=== PATIENT | male | born 1940 | race Caucasian/White ===

== ENCOUNTER 2022-06-25 08:53 | Outpatient (RCR) | payer MEDICARE, BC, SELFPAY ==
--- NOTE | 2022-06-25 12:18 | OT.POTN ---
OT/PT Pre-Op Therapy Note OT/PT Pre-Op Therapy Note Start: 06/25/22 08:32 Freq: Status: Active Protocol: Document 06/25/22 11:58 LCN (Rec: 06/25/22 12:18 RADHA [email or web address]) E-signed By Ashleigh Boss, OTR/L, CLT Pre-Op Therapy Note Pre-Op Therapy Note Joint T total shoulder replacement per R shoulder OA. 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 Pt still doing home repair and remodeling/painting and staining projects but is moving very slowly, affects his low back and hand OA. Daughter has 3 jobs but lives real close to his [address] [place] that he built. Overall Bilateral Upper Extremity ROM/ Pt's R shoulder limited to 65 Strength degrees SH flexion. L shoulder also very limited, philip to IR ( impacting one handed toileting hygiene) Social History Type of Dwelling Multilevel Home Number of Stairs to Enter (Stairs) 3 Physical Barriers to Enter Home Railing Ascend Left Lives With: Spouse Living With Comments is legally blind and affected by dementia, pt is primary caregiver. 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 (Pt also showers daily per extra urine flow from artificial bladder.) Use asbestos removal supervisor or 's assist to pull up L side of pants into place. Pre-Op Therapy Note (Continued) Do You Drive Yes Recovery With Outpatient Outpatient PT Scheduled Yes Date/Time & Location of Outpatient PT PT at [facility] is scheduled for Evaluation 06/30/22 (too early? May cancel ) and 07/09/22. Ortho follow up at is 07/04/22. 's INR is 07/08/22. (Pt is considering having home health PT, if social work can help arrange. Other agencies are not responding to his phone call requests. Is open to having transportation but prefers to drive as soon as he can. ) Daughter/cousin to pre-open any needed canned foods. Preop Exercises Given Yes Fall Prevention Education Given Yes Adaptive Equipment Resources Given Yes Post-Op Therapy Progression Reviewed Yes Readiness for Learning Excellent Teaching Comments Pt took extra time to formulate his questions and appears overwhelmed with managing details. He has arranged that his cousin is staying with during the procedure and his daughter took Thursday off to help get him home. Pt has weeks worth of pre portioned frozen food available.
--- NOTE | 2022-06-25 12:20 | OT.POTN ---
OT/PT Pre-Op Therapy Note OT/PT Pre-Op Therapy Note Start: 06/25/22 08:32 Freq: Status: Active Protocol: Document 06/25/22 11:58 LCN (Rec: 06/25/22 12:18 RADHA [id number]) E-signed By Ashleigh Boss, OTR/L, CLT Pre-Op Therapy Note Pre-Op Therapy Note Joint T total shoulder replacement per R shoulder OA. 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 Pt still doing home repair and remodeling/painting and staining projects but is moving very slowly, affects his low back and hand OA. Daughter has 3 jobs but lives real close to his [address] home that he built. Overall Bilateral Upper Extremity ROM/ Pt's R shoulder limited to 65 Strength degrees SH flexion. L shoulder also very limited, philip to IR ( impacting one handed toileting hygiene) Social History Type of Dwelling Multilevel Home Number of Stairs to Enter (Stairs) 3 Physical Barriers to Enter Home Railing Ascend Left Lives With: Spouse Living With Comments is legally blind and affected by dementia, pt is primary caregiver. 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 (Pt also showers daily per extra urine flow from artificial bladder.) Use supervisory investigative specialist or 's assist to pull up L side of pants into place. Pre-Op Therapy Note (Continued) Do You Drive Yes Recovery With Outpatient Outpatient PT Scheduled Yes Date/Time & Location of Outpatient PT PT at [facility] is scheduled for Evaluation 06/30/22 (too early? May cancel ) and 07/09/22. Ortho follow up at is 07/04/22. 's INR is 07/08/22. (Pt is considering having home health PT, if social work can help arrange. Other agencies are not responding to his phone call requests. Is open to having transportation but prefers to drive as soon as he can. ) Daughter/cousin to pre-open any needed canned foods. Preop Exercises Given Yes Fall Prevention Education Given Yes Adaptive Equipment Resources Given Yes Post-Op Therapy Progression Reviewed Yes Readiness for Learning Excellent Teaching Comments Pt took extra time to formulate his questions and appears overwhelmed with managing details. He has arranged that his cousin is staying with during the procedure and his daughter took Thursday off to help get him home. Pt has weeks worth of pre portioned frozen food available.
== END 2023-05-27 11:12 | disposition home or self-care (01) ==
PROVIDERS: Visit Provider Orthopaedic Surgery
DX: M19.011 Primary osteoarthritis, right shoulder (principal); Z51.89 Encounter for other specified aftercare

== ENCOUNTER 2022-06-27 16:08 | Inpatient (IN) | payer MEDICARE, BC, SELFPAY ==
[2022-06-26] VITALS (22 sets, daily range): BP systolic 107–145; BP diastolic 58–76; PULSE 48–76; RESP 14–20; TEMP 36–36.9; O2SAT 92–99; BMI 39.8
[2022-06-26] MEDS: CELECOXIB 200 MG CAPSULE PO (07:09)
[2022-06-26] MEDS: fentaNYL 100 MCG/2 ML inj IVP (07:09)
[2022-06-26] MEDS: MIDAZOLAM HCL 1 MG/ML inj IVP (07:09)
[2022-06-26] MEDS: ACETAMINOPHEN 500 MG TABLET 1000 MG PO ×3 (07:09→22:50)
[2022-06-26] MEDS: OXYCODONE (CR) 10 MG TAB.ER.12H PO (07:09)
[2022-06-26] MEDS: LACTATED RINGERS 1000 ML 1,000 ML 100 ML IV (07:30)
--- NOTE | 2022-06-26 08:36 | SUR.PREOP ---
shoulder wash done with alcohol and hydrogen peroxide
--- NOTE | 2022-06-26 08:41 | SUR.PREOP ---
Pt cousin Reshma here with pt to keep an eye on Pts who has dementia watch, phone and wallet given to Reshma
[2022-06-26] MEDS: SODIUM CHLORIDE 0.9 % (FLUSH) 10 ML SYRINGE IVF (08:55)
--- NOTE | 2022-06-26 09:02 | SUR.PREOP ---
TIME?OUT:?0900 right shoulder yolanda sow,pt and chart consent PT/RN/MDA?VERIFICATION?OF?SURGICAL?SITE,?PROCEDURE,?AND?CONSENT OBTAINED?PRIOR?TO?INVASIVE?PROCEDURE.
--- NOTE | 2022-06-26 09:27 | P.NB_ITS ---
Nerve Block Nerve Block Time Seen by Provider: 09:27 Date Seen: 06/26/22 Type of block requested by surgeon for post-operative analgesia: interscalene Side: right Time out performed: Yes Verification of patient name: Yes Verification of date of : Yes Site marking: site marked Name of person performing procedure: MARIAA Carpenter Continuous monitoring Was continuous monitoring of O2 sat, B/P, contract clerk automobile, recorded every 15 minutes?: Yes Procedure Checklist: sterile prep, needles and gloves Ultrasound guided. Images saved: Yes Medications given in 5ml increments after negative aspiration: Ropivicaine %: 0.5 mL: 20 Needle gauge: 20 Decadron (mg): 10 Precedex (mcg): 20 Patient tolerated procedure well: Yes Block Charges Block Charge (with Pro Fee): Brachial Plexus Use of Ultrasound Machine for Block: Yes- US Guidance/pain block
[2022-06-26] MEDS: CEFAZOLIN 2 GM INJ IVP (09:30)
[2022-06-26] MEDS: TRANEXAMIC ACID 100 MG/ML INJ 1000 MG IV (09:35)
--- NOTE | 2022-06-26 12:00 | PM.ORPRC ---
Procedure Note Date of procedure: 06/26/22 Procedure: SURGEON: Raúl Gallegos MD FURNACE LINER: Ann Guerrero PA-C PREOPERATIVE DIAGNOSIS: Right shoulder rotator cuff tear arthropathy POSTOPERATIVE DIAGNOSIS: Right shoulder rotator cuff tear arthropathy NAME OF OPERATION: Right upper extremity reverse shoulder arthroplasty ANESTHESIA: General endotracheal ESTIMATED BLOOD LOSS: 200 mL COMPLICATIONS: None SPECIMENS: None DRAINS: None PREOPERATIVE ANTIBIOTICS: Ancef 3 grams IMPLANTS: 1. Tornier 29mm standard x 35 mm baseplate 2. 39mm standard glenosphere 3. Eight be humeral stem 4. High eccentric +0 humeral tray 5. 39mm +6 polyethylene INDICATIONS: The patient is a 81-year-old male with a longstanding history of severe, unrelenting right shoulder pain secondary to rotator cuff tear arthropathy. Despite appropriate nonoperative management, including activity modification, anti-inflammatories, [id number]-[id number]-[id number] pain medication, physical therapy, and injections they continue to have pain and disability. Operative intervention was offered. The risks, benefits and expected outcomes were discussed in detail. These included but were not limited to: Infection, bleeding, injury to blood vessel or nerve, venous thromboembolism. All questions were answered to their satisfaction. Use of an certified ophthalmic assistant was necessary throughout the case for patient positioning and safety, soft tissue retraction, and closure. PROCEDURE: General anesthesia was administered. The patient was placed in the lazy beach chair position on the operating room table. The right upper extremity was prepped and draped in the usual sterile fashion. A standard deltopectoral incision was made. Subcutaneous dissection was taken with electrocautery to the deltopectoral interval. The cephalic vein was mobilized, lateral branches were cauterized. The vein was taken medially with the pectoralis. We bluntly entered the deltopectoral interval. We freed up the deltoid. The upper 1/3 of the insertion of the pectoralis was divided with cautery. The static retractor was placed. The clavipectoral fascia and CA ligament were divided. The circumflex vessels were controlled with electrocautery. The biceps was dissected out of the bicipital groove, was tagged with a #2 FiberWire suture and divided proximally. Two fiberWire sutures were placed in the subscapularis. The subscap was subperiosteally elevated off of the lesser tuberosity. The humeral head was delivered into the wound. The intramedullary humeral cutting guide was placed. We made the cut at the anatomic neck, in 30? of retroversion. Humeral sounds were used to assess the diameter of the canal. The broach was placed and had good rotational stability. The calcar reamer was used and the protective base plate cover was placed. Attention was then turned to the glenoid. Hohmann retractors were placed posteriorly. The labrum and biceps stump were sharply debrided. The origin of the inferior glenohumeral ligaments were subperiosteally released off of the glenoid. The drill guide was placed. The guide pin was placed in 0? of cephalic tilt. The reamer was used to bleeding bone. The central drill was used x2. The tap was used. The standard base plate was placed. This had excellent purchase. Locking screws were placed. The 39 standard glenosphere was impacted. The set screw was tightened. Attention then returned to the humerus. We placed a high eccentric standard base plate and standard poly. We reduced the shoulder and took it through a range of motion. It was found to be stable with appropriate soft tissue tension. Trial humeral components were removed. The biceps was tenodesed in the bicipital groove with drill holes and our previously placed FiberWire suture. We placed #2 FiberWire sutures in the lesser tuberosity for subsequent subscap repair. We assembled the humeral component on the back table. We placed it in the center of our subscapularis repair sutures and tapped it down to our humeral cut. This had excellent purchase. The shoulder was reduced and again was found to be stable with appropriate soft tissue tension. We did a 3 min dilute Betadine solution soak. We irrigated the wound with 3 L of normal saline via pulse lavage. We repaired the subscapularis to the lesser tuberosity with our previously placed FiberWire sutures. The deltopectoral interval was loosely reapproximated with an 0 Vicryl in an interrupted [id number] fashion. Subcutaneous tissues were closed with the 2-0 Vicryl and a running 3-0 Monocryl suture. The skin was sealed with glue. A dry dressing and sling were applied. Sponge and needle counts were correct x2. The patient tolerated the procedure well, there were no apparent complications. They were awakened and extubated in the operating room, taken to the postanesthesia care unit in satisfactory condition. PLAN: The patient will be mobilized with physical therapy. The sling will be used for 6 weeks postoperatively. Active range of motion in forward flexion and abduction as tolerates. No external rotation greater than 0? for 6 weeks postoperatively. They will be discharged to home once medically appropriate.
--- NOTE | 2022-06-26 12:16 | W.ANESCHARGE ---
Anesthesia Charges Start Date/Time Anesthesia Start Date: 06/26/22 Anesthesia Start Time: 09:15 Stop Date/Time Anesthesia Stop Date: 06/26/22 Anesthesia Stop Time: 12:15 Summary Emergency: No Extremes of Age: Over 71-CPT 42838
--- NOTE | 2022-06-26 13:34 | PC.SOCIAL ---
Met with pt. who was in his room with his cousin, and spouse who has dementia. Pt. has planned that his daughter that lives two miles from their home will stay with his spouse tonight and will stay with pt. and spouse for the entire weekend. Pt. states he has meals in the freezer to heat up when he get's home. Pt.'s cousin also said she can assist with meals and can assist with pt.'s spouse if needed around daughter's help.
[2022-06-26] MEDS: LACTATED RINGERS 1000 ML 1,000 ML 75 ML IV (13:44)
--- NOTE | 2022-06-26 15:44 | PM.IMCN1 ---
Date of Consult Patient: Other ([place], [place]) Consult date: 06/26/22 Requesting Physician: Orthopedics Primary Care Provider: Jeanine Marino CNP Consult Narrative Reason for consult: Post op support of chronic medical conditions Narrative: Jose Messina is a 81 year old man with chronic right shoulder rotator cuff arthropathy who presents for an elective right reverse shoulder arthroplasty. Procedure undertaken uneventfully. No obvious complications. Estimated blood loss of 200 mL. Patient indicates the shoulders still numb. Still not able to use his right upper extremity due to the effects of the block. Denies concerns with breathing , such as shortness of breath. No chest heaviness, pressure, tightness, or pain. Eating and drinking without concerns. Denies nausea or vomiting. Denies dyspepsia, odynophagia, dysphagia. Review of Systems Status of ROS: Reports: 10 or more systems reviewed and unremarkable except as noted in History and below Narrative: No angina or anginal equivalent. No syncope or near syncope. Denies orthostasis or lightheadedness. Denies palpitations. Denies dyspnea at rest, paroxysmal nocturnal dyspnea, or orthopnea. Denies claudication. Denies dependent edema. Utilizes his CPAP machine every night. Did bring his CPAP machine here to the hospital so he can use while here in the hospital. Ordinarily independent in all his ADLs. He is the primary caregiver for his who has a cognitive impairment. Patient is still driving an automobile. He has plans with his daughter to help for the next couple of days in the home, plus his cousin who lives nearby to help if needed as well. His is not able to help much. He expresses concern about his 's well-being while he is not as able to care for her. Has nocturia times 3-4 ordinarily since his radha-bladder in 2013 when he had a robotic assisted radical cystectomy and prostatectomy in conjunction with overall treatment for his bladder cancer. this is not worse or better recently. Denies dysuria, urgency, or hematuria. Denies bowel or bladder concerns. No focal motor neurologic deficits. No recent trauma, injury, infection. Denies fevers, rigors, diaphoresis. Denies myalgias or arthralgias. States he has no focal motor neurologic deficits. Denies weight gain or weight loss. Denies night sweats. Denies polyuria, polydipsia, or polyphagia. No recent rashes, petechiae, or cyanosis. Denies cold or heat intolerance. I reviewed the preoperative assessment per his primary care physician on 06/11/2022. No major contraindications to proceed with the surgery noted at that time. I did note that he has been struggling with borderline low values of serum potassium at lease since a year ago. Most recent serum potassium level 3.5, as low as 2.9 3 months ago. Also noteworthy is that his baseline hemoglobin tends to be mildly low as well with values of 12.5-13 most recently 12.7 on 06/06/2022. [facility] Medical History (Updated 06/26/22 @ 16:05 by Dmitri Matthews MD) Anticoagulated Atrial fibrillation Bladder cancer Bladder cancer Coronary artery disease (CAD) excluded GERD (gastroesophageal reflux disease) Gout Hypertension Rotator cuff tear arthropathy of right shoulder Sleep apnea Surgical History (Updated 06/26/22 @ 16:05 by Dmitri Matthews MD) History of back surgery History of bladder replacement History of carpal tunnel release History of cholecystectomy History of open reduction and internal fixation (ORIF) procedure History of tonsillectomy History of total right hip arthroplasty Family History Other High blood pressure Prostate cancer Social History Narrative: 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 He still drives a car. Highest level of school completed/degree received: some college, no degree Smoking Status: Never smoker Do you use any of these nicotine containing products: None How often do you have a drink containing alcohol: monthly or less Alcohol type: beer and hard liquor How many standard drinks containing alcohol do you have on a typical day: 1 or 2 How often do you have six or more drinks on one occasion: Never AUDIT-C Alcohol total score: 1 Non-prescribed substance use: denies use and over the counter (eg: immodium) Non-prescribed substance use details: OTC: tylenol prn, Tums prn Caffeine: Yes (tea or coffee occ, not every day) service: No Meds Home Medications and Allergies Home Medications Medication Instructions Recorded Confirmed Type acetaminophen 500 mg tablet 1,000 mg PO Q6H PRN 06/25/22 06/26/22 History allopurinol 100 mg tablet 200 mg PO DAILY 06/25/22 06/26/22 History apixaban 5 mg tablet (Eliquis) 5 mg PO BID 06/25/22 06/26/22 History calcium carbonate 500 mg calcium 1,000 mg PO Q6H PRN 06/25/22 06/26/22 History (1,250 mg) chewable tablet (Calcium 500) fluticasone propionate 50 2 spray intranasal DAILY PRN 06/25/22 06/25/22 History mcg/actuation nasal spray,suspension glucosamine-chondroitin 750 mg-600 tab PO 06/25/22 History mg tablet magnesium oxide 250 mg PO DAILY 06/25/22 06/26/22 History metoprolol tartrate 25 mg tablet 25 mg PO BID 06/25/22 06/26/22 History multivitamin 1 tab PO DAILY 06/25/22 06/26/22 History potassium chloride 20 mEq 20 meq PO DAILY 06/25/22 06/26/22 History tablet,extended release(part/cryst) triamterene 75 1 tab PO DAILY 06/25/22 06/26/22 History mg-hydrochlorothiazide 50 mg tablet Allergies Allergy/AdvReac Type Severity Reaction Status Date / Time statins AdvReac Intermediate muscle Uncoded 06/26/22 07:24 stiffness Exam Narrative: Exam Narrative: Patient is in no acute distress. Appears comfortable. He ate the contents of his lunch tray without difficulties. No acute distress. Articulate. Friendly. Cooperative. Alert, oriented to self, place, time, situation. Mood and affect are congruent. Hearing and vision are adequately preserved. Midline nasal septum. Tight oral aperture otherwise benign appearing oropharynx. Voice is somewhat hoarse. Midline trachea. Normal thyroid. No JVD, hepatojugular reflux, or carotid bruits. Does not have adenopathy in the pre or postauricular chains, anterior or posterior cervical chains, submandibular or submental fossa, supra or infraclavicular fossa, or axilla bilaterally. Lungs are clear to auscultation. No wheezing, rhonchi, or rales. Heart tones are chaotic, normal S1-S2, distant tones, no obvious murmur, gallop, or rub. PMI not laterally displaced. Abdomen with active bowel sounds, soft, nontender. Able to move his left upper extremity and right and left lower extremities. Still not able to move right upper extremity status post anesthetic block. Skin is warm and intact. No rash, petechiae, or cyanosis. Independent transfers with standby assist at this juncture. No tremor or asterixis or ataxia. Const: Vital Signs, click to edit/add: Vital Signs - 24 hr 06/26/22 08:35 06/26/22 09:06 06/26/22 12:35 Temperature 97.6 F Pulse Rate 52 L 48 L 52 L Pulse Rate [Left P ulse Oximeter] Respiratory Rate 16 16 16 Blood Pressure 144/66 H 138/63 133/68 Blood Pressure [Le ft Arm] Pulse Oximetry 97 97 99 Oxygen Delivery Me thod Room Air Nasal Cannula Nasal Cannula Oxygen Flow Rate 3 2 06/26/22 12:28 06/26/22 12:13 06/26/22 12:15 Temperature 98.5 F Pulse Rate 54 L 52 L 54 L Pulse Rate [Left P ulse Oximeter] Respiratory Rate 16 16 Blood Pressure 135/70 140/75 H 144/70 H Blood Pressure [Le ft Arm] Pulse Oximetry 99 99 98 Oxygen Delivery Me thod Nasal Cannula Oxygen Flow Rate 2 06/26/22 12:20 06/26/22 12:25 06/26/22 12:30 Temperature Pulse Rate 51 L 57 L 52 L Pulse Rate [Left P ulse Oximeter] Respiratory Rate 16 16 16 Blood Pressure 138/70 135/70 136/66 Blood Pressure [Le ft Arm] Pulse Oximetry 99 99 99 Oxygen Delivery Me thod Nasal Cannula Nasal Cannula Nasal Cannula Oxygen Flow Rate 2 2 2 06/26/22 12:40 06/26/22 12:50 06/26/22 12:50 Temperature 96.8 F L 96.8 F L Pulse Rate 55 L 58 L Pulse Rate [Left P ulse Oximeter] 58 L Respiratory Rate 16 14 14 Blood Pressure 138/65 Blood Pressure [Le ft Arm] 124/76 124/76 Pulse Oximetry 99 94 Oxygen Delivery Me thod Room Air Room Air Room Air Oxygen Flow Rate 2 Documenting provider has reviewed patient's vital signs: yes Assessment and Plan Assessment and plan (1) Rotator cuff tear arthropathy of right shoulder: Status: Acute (2) Status post reverse arthroplasty of right shoulder: Status: Acute (3) Hypertension: Status: Acute (4) Sleep apnea: Problem comment: uses a CPAP Status: Acute (5) Atrial fibrillation: Status: Acute (6) Anticoagulated: Status: Acute (7) History of bladder replacement: Problem comment: ~January 2014 at [facility] Status: Acute Plan 1. Reviewed my impression with the patient, his , and the patient's cousin who lives nearby him in his very supportive. Answered their questions to their satisfaction. 2. Agree with the orthopedic surgery plan relative to perioperative antibiotic prophylaxis. 3. Agree with Orthopedic surgery plan to restart his apixaban anticoagulation therapy once again tomorrow. 4. I will hold his triamterene with hydrochlorothiazide which is use to treat his hypertension. 5. Will continue with other medications. 6. Will check a serum potassium level today. Consider replacement therapy if warranted. 7. Continue with use of his CPAP at hour of sleep. 8. Will follow with Orthopedic surgery while patient is still in the hospital. 9. Patient, , and cousin I agreeable to above stated plans and recommendations.
[2022-06-26] MEDS: CEFAZOLIN 3 GM in 0.9 % SODIUM CHLORIDE 100 ml 100 ML IVPB ×2 (16:23→22:57)
[2022-06-26 16:50] LABS: Potassium* 3.7 mmol/L (3.6-5.1)
--- NOTE | 2022-06-26 20:34 | PC.NURSE ---
Pt. arrived to room 259 at 1250 from PACU after anterior shoulder surgery, R. Dressing c/d/i, cryo cuff in place, SCD/TEDS in use. No pain reported on this shift. Up to use restroom x1, unmeasured void. Pt. is right handed, difficulty feeding self, but able. Frequent vitals completed through 1800. IV antibiotic started late d/t issues w/IV in left hand, re-timed by pharmacy. Pt. comfortably resting in chair. Spouse and cousin at bedside much of the afternoon.
[2022-06-26] MEDS: SENNOSIDES 1 TAB TABLET 2 TAB PO (20:57)
[2022-06-26] MEDS: METOPROLOL TARTRATE 25 MG TABLET PO (20:58)
[2022-06-27 03:00] VITALS: BP 146/70; PULSE 62; RESP 22; TEMP 36.6; O2SAT 98
[2022-06-27] MEDS: ACETAMINOPHEN 500 MG TABLET 1000 MG PO ×4 (05:37→22:54)
--- NOTE | 2022-06-27 06:04 | PC.NURSE ---
SHIFT NOTE : Pt A&O. Afebrile, oxygen saturations >90% on room air, CPAP on overnight. Denies SOB, CP, and N/V. Surgical dressing to right shoulder is CDI, pt beginning to have more sensation in his right hand, arm is still numb, right arm elevated on pillows and active ice on right shoulder continuously. Pt denies needing PRN pain medication, has only received scheduled Tylenol. Pt up SBA with a walker, needing some assistance with ADL's. Pt has a with significant dementia and is worried about managing at home with his shoulder and caring for her, social service consult placed.
[2022-06-27 06:39] LABS: Hematocrit 32.2 % (37.0-53.0); Hemoglobin* 10.3 gm/dL (13.5-17.5); Mean Corpuscular HGB Conc 32 gm/dL (32-36); Mean Corpuscular Hemoglobin 29 pg (26-34); Mean Corpuscular Volume 91 fL (80-100); Platelet Count* 226 K/uL (140-440); Red Blood Count 3.55 m/uL (4.30-5.90); White Blood Count* 14.84 K/uL (4.50-11.00)
[2022-06-27 06:55] LABS: Slide Review Reflex No
[2022-06-27 06:56] LABS: Potassium* 3.5 mmol/L (3.6-5.1); Sodium* 138 mmol/L (135-149)
[2022-06-27 06:59] LABS: Blood Urea Nitrogen* 38 mg/dL (7-30); Creatinine* 1.2 mg/dL (0.5-1.5); Estimated Glomerular Filt Rate 61 ml/min
[2022-06-27] MEDS: CEFAZOLIN 3 GM in 0.9 % SODIUM CHLORIDE 100 ml 100 ML IVPB (07:49)
[2022-06-27 07:54] VITALS: BP 169/74; PULSE 62; RESP 18; TEMP 36.7; O2SAT 98
[2022-06-27] MEDS: METOPROLOL TARTRATE 25 MG TABLET PO ×2 (09:16→21:38)
[2022-06-27] MEDS: allopurinoL 100 MG TABLET 200 MG PO (09:16)
[2022-06-27] MEDS: SENNOSIDES 1 TAB TABLET 2 TAB PO ×2 (09:17→21:38)
[2022-06-27] MEDS: MAGNESIUM OXIDE 400 MG TABLET 200 MG PO (09:17)
[2022-06-27] MEDS: POTASSIUM CHLORIDE 10 MEQ CAPSULE ER 20 MEQ PO (09:17)
--- NOTE | 2022-06-27 09:30 | P.ORPN_ITS ---
Subjective Subjective Time Seen by Provider: 07:50 Date Seen: 06/27/22 Principal diagnosis: S/P day 1 right RSA Interval history: Jose is doing well postoperative day 1 right reverse shoulder arthroplasty. No acute concerns. C/o minimal right shoulder pain that is well managed with icing and Tylenol. Numbness/tingling distally is improving. Denies: chest pain, SOB, fever, chills. Patient has a with advanced dementia that he cares for. Jose is concerned that he will be unable to care for his . manager services consult is pending to address this further. Ortho Exam Narrative Exam Narrative: Incision/Dressing: Dressing appears clean and dry. No drainage present. Mepilex intact. Right shoulder appears moderately swollen but supple with no obvious erythema, fluctuance or excessive warmth. No ecchymosis or erythematous streaking. Warmth around the wound is appropriate. Ice is being utilized as needed. CMS: Intact distally with 2+ Radial pulse. Deltoid sensation intact. Constitutional: Patient is alert and oriented x3. Patient is in no acute distress and converses without labored breathing. Patient is able to make decisions and demonstrates good insight. Patient is pleasant and cooperative. Affect is full range and appropriate for the circumstances. Const Vital Signs, click to edit/add: Vital Signs - 24 hr 06/26/22 12:35 06/26/22 12:28 06/26/22 12:13 Temperature 98.5 F Pulse Rate 52 L 54 L 52 L Pulse Rate [Left Pulse Oximeter] Respiratory Rate 16 16 Blood Pressure 133/68 135/70 140/75 H Blood Pressure [Left Arm] Pulse Oximetry 99 99 99 Oxygen Delivery Method Nasal Cannula Oxygen Flow Rate 2 06/26/22 12:15 06/26/22 12:20 06/26/22 12:25 Temperature Pulse Rate 54 L 51 L 57 L Pulse Rate [Left Pulse Oximeter] Respiratory Rate 16 16 16 Blood Pressure 144/70 H 138/70 135/70 Blood Pressure [Left Arm] Pulse Oximetry 98 99 99 Oxygen Delivery Method Nasal Cannula Nasal Cannula Nasal Cannula Oxygen Flow Rate 2 2 2 06/26/22 12:30 06/26/22 12:40 06/26/22 12:50 Temperature 96.8 F L Pulse Rate 52 L 55 L 58 L Pulse Rate [Left Pulse Oximeter] Respiratory Rate 16 16 14 Blood Pressure 136/66 138/65 Blood Pressure [Left Arm] 124/76 Pulse Oximetry 99 99 Oxygen Delivery Method Nasal Cannula Room Air Room Air Oxygen Flow Rate 2 2 06/26/22 12:50 06/26/22 13:15 06/26/22 14:30 Temperature 96.8 F L Pulse Rate Pulse Rate [Left Pulse Oximeter] 58 L 52 L 61 Respiratory Rate 14 16 Blood Pressure Blood Pressure [Left Arm] 124/76 129/67 113/66 Pulse Oximetry 94 93 Oxygen Delivery Method Room Air Room Air Room Air Oxygen Flow Rate 06/26/22 15:00 06/26/22 18:00 06/26/22 13:06 Temperature 97.8 F Pulse Rate Pulse Rate [Left Pulse Oximeter] 64 63 60 Respiratory Rate 16 14 14 Blood Pressure Blood Pressure [Left Arm] 116/64 114/58 L 127/73 Pulse Oximetry 94 93 92 Oxygen Delivery Method Room Air Room Air Room Air Oxygen Flow Rate 06/26/22 13:30 06/26/22 13:45 06/26/22 14:00 Temperature 97.8 F 98.1 F Pulse Rate Pulse Rate [Left Pulse Oximeter] 57 L 59 L 51 L Respiratory Rate 14 16 Blood Pressure Blood Pressure [Left Arm] 127/71 115/64 120/69 Pulse Oximetry 93 94 92 Oxygen Delivery Method Room Air Room Air Room Air Oxygen Flow Rate 06/26/22 17:00 06/26/22 23:00 06/26/22 23:00 Temperature 98 F Pulse Rate Pulse Rate [Left Pulse Oximeter] 68 70 70 Respiratory Rate 16 20 Blood Pressure Blood Pressure [Left Arm] 125/69 145/73 H Pulse Oximetry 93 95 Oxygen Delivery Method Room Air CPAP Oxygen Flow Rate 06/26/22 19:00 06/27/22 03:00 06/27/22 07:54 Temperature 98.5 F 98 F 98.1 F Pulse Rate Pulse Rate [Left Pulse Oximeter] 76 62 62 Respiratory Rate 18 22 18 Blood Pressure Blood Pressure [Left Arm] 107/61 146/70 H 169/74 H Pulse Oximetry 96 98 98 Oxygen Delivery Method Room Air CPAP CPAP Room Air Oxygen Flow Rate Assessment and Plan Assessment and plan (1) Rotator cuff tear arthropathy of right shoulder: Status: Acute (2) Status post reverse arthroplasty of right shoulder: Status: Acute (3) Hypertension: Status: Acute (4) Sleep apnea: Problem details: uses a CPAP Status: Acute (5) Atrial fibrillation: Status: Acute (6) Anticoagulated: Status: Acute (7) History of bladder replacement: Problem details: ~January 2014 at [facility] Status: Acute Plan Patient will wear the sling for 6 weeks post surgery. He can take it off for comfort and for exercises. Activity: no external rotation of the right shoulder past 0? x 6 weeks. Forward flexion and abduction of the right shoulder is allowed as tolerated. They will work on range of motion of the elbow, wrist, fingers once the block has wore off on the operative extremity. Patient will begin physical therapy for the operative shoulder next week. For discharge, oxycodone and Tylenol for pain. Do not drive while on narcotic pain medication. Drive only when safe to do so, when they have normal use/function of the upper extremity, this will likely take 6 weeks. Patient will minimize and discontinue the narcotic as soon as possible. Remove dressing in 1 week. Dressing is waterproof. May shower. Surgical glue covers the wound. Do not scrub the wound. Expect swelling and bruising about the shoulder and upper extremity. Call Orthopedics if swelling is excessive. Use of ice/active ice is without restriction. Patient will notify Orthopedics with any questions or concerns. Return to Orthopedic clinic next week for a wound check Return to clinic in [address] Gallegos.
--- NOTE | 2022-06-27 09:41 | PM.ORPN ---
Subjective Subjective Time Seen by Provider: 07:50 Date Seen: 06/27/22 Principal diagnosis: S/P day 1 right RSA Interval history: Jose is doing well postoperative day 1 right reverse shoulder arthroplasty. No acute concerns. C/o minimal right shoulder pain that is well managed with icing and Tylenol. Numbness/tingling distally is improving. Denies: chest pain, SOB, fever, chills. Patient has a with advanced dementia that he cares for. Jose is concerned that he will be unable to care for his . client services vice president consult is pending to address this further. Ortho Exam Narrative Exam Narrative: Incision/Dressing: Dressing appears clean and dry. No drainage present. Mepilex intact. Right shoulder appears moderately swollen but supple with no obvious erythema, fluctuance or excessive warmth. Eccymosis present near medial aspect of dressing. Ice is being utilized as needed. CMS: Intact distally with 2+ Radial pulse. Decreased sensation over deltoid. Sensation confirmed distally. Calf: Bilateral calves are supple, with no swelling, pain, tenderness, erythema, discoloration or coolness to the touch. Constitutional: Patient is alert and oriented x3. Patient is in no acute distress and converses without labored breathing. Patient is able to make decisions and demonstrates good insight. Patient is pleasant and cooperative. Affect is full range and appropriate for the circumstances. Other: Patient is wearing her cryo cuff and utilizing her sling during this visit. Const Vital Signs, click to edit/add: Vital Signs - 24 hr 06/26/22 12:35 06/26/22 12:28 06/26/22 12:13 Temperature 98.5 F Pulse Rate 52 L 54 L 52 L Pulse Rate [Left Pulse Oximeter] Respiratory Rate 16 16 Blood Pressure 133/68 135/70 140/75 H Blood Pressure [Left Arm] Pulse Oximetry 99 99 99 Oxygen Delivery Method Nasal Cannula Oxygen Flow Rate 2 06/26/22 12:15 06/26/22 12:20 06/26/22 12:25 Temperature Pulse Rate 54 L 51 L 57 L Pulse Rate [Left Pulse Oximeter] Respiratory Rate 16 16 16 Blood Pressure 144/70 H 138/70 135/70 Blood Pressure [Left Arm] Pulse Oximetry 98 99 99 Oxygen Delivery Method Nasal Cannula Nasal Cannula Nasal Cannula Oxygen Flow Rate 2 2 2 06/26/22 12:30 06/26/22 12:40 06/26/22 12:50 Temperature 96.8 F L Pulse Rate 52 L 55 L 58 L Pulse Rate [Left Pulse Oximeter] Respiratory Rate 16 16 14 Blood Pressure 136/66 138/65 Blood Pressure [Left Arm] 124/76 Pulse Oximetry 99 99 Oxygen Delivery Method Nasal Cannula Room Air Room Air Oxygen Flow Rate 2 2 06/26/22 12:50 06/26/22 13:15 06/26/22 14:30 Temperature 96.8 F L Pulse Rate Pulse Rate [Left Pulse Oximeter] 58 L 52 L 61 Respiratory Rate 14 16 Blood Pressure Blood Pressure [Left Arm] 124/76 129/67 113/66 Pulse Oximetry 94 93 Oxygen Delivery Method Room Air Room Air Room Air Oxygen Flow Rate 06/26/22 15:00 06/26/22 18:00 06/26/22 13:06 Temperature 97.8 F Pulse Rate Pulse Rate [Left Pulse Oximeter] 64 63 60 Respiratory Rate 16 14 14 Blood Pressure Blood Pressure [Left Arm] 116/64 114/58 L 127/73 Pulse Oximetry 94 93 92 Oxygen Delivery Method Room Air Room Air Room Air Oxygen Flow Rate 06/26/22 13:30 06/26/22 13:45 06/26/22 14:00 Temperature 97.8 F 98.1 F Pulse Rate Pulse Rate [Left Pulse Oximeter] 57 L 59 L 51 L Respiratory Rate 14 16 Blood Pressure Blood Pressure [Left Arm] 127/71 115/64 120/69 Pulse Oximetry 93 94 92 Oxygen Delivery Method Room Air Room Air Room Air Oxygen Flow Rate 06/26/22 17:00 06/26/22 23:00 06/26/22 23:00 Temperature 98 F Pulse Rate Pulse Rate [Left Pulse Oximeter] 68 70 70 Respiratory Rate 16 20 Blood Pressure Blood Pressure [Left Arm] 125/69 145/73 H Pulse Oximetry 93 95 Oxygen Delivery Method Room Air CPAP Oxygen Flow Rate 06/26/22 19:00 06/27/22 03:00 06/27/22 07:54 Temperature 98.5 F 98 F 98.1 F Pulse Rate Pulse Rate [Left Pulse Oximeter] 76 62 62 Respiratory Rate 18 22 18 Blood Pressure Blood Pressure [Left Arm] 107/61 146/70 H 169/74 H Pulse Oximetry 96 98 98 Oxygen Delivery Method Room Air CPAP CPAP Room Air Oxygen Flow Rate Assessment and Plan Assessment and plan (1) Rotator cuff tear arthropathy of right shoulder: Status: Acute (2) Status post reverse arthroplasty of right shoulder: Status: Acute (3) Hypertension: Status: Acute (4) Sleep apnea: Problem details: uses a CPAP Status: Acute (5) Atrial fibrillation: Status: Acute (6) Anticoagulated: Status: Acute (7) History of bladder replacement: Problem details: ~January 2014 at [facility] Status: Acute Plan Patient will wear the sling for 6 weeks post surgery. He can take it off for comfort and for exercises. Activity: no external rotation of the right shoulder past 0? x 6 weeks. Forward flexion and abduction of the right shoulder is allowed as tolerated. They will work on range of motion of the elbow, wrist, fingers once the block has wore off on the operative extremity. Patient will begin physical therapy for the operative shoulder next week. For discharge, oxycodone and Tylenol for pain. Do not drive while on narcotic pain medication. Drive only when safe to do so, when they have normal use/function of the upper extremity, this will likely take 6 weeks. Patient will minimize and discontinue the narcotic as soon as possible. Remove dressing in 1 week. Dressing is waterproof. May shower. Surgical glue covers the wound. Do not scrub the wound. Expect swelling and bruising about the shoulder and upper extremity. Call Orthopedics if swelling is excessive. Use of ice/active ice is without restriction. Patient will notify Orthopedics with any questions or concerns. Return to Orthopedic clinic next week for a wound check Return to clinic in [address] Gallegos.
--- NOTE | 2022-06-27 10:04 | PM.DS1 ---
DS: Providers Provider Time Seen by Provider: 09:45 Date Seen: 06/27/22 Primary care physician: Jeanine Marino CNP Consults: 06/26/22 12:55 Consult to Occupational Therapy [CONS] Routine Comment: Reason(s) for OT Consult:: Evaluate and Treat Any Restrictions?:: See Comment Consult to Physical Therapy [CONS] Routine Comment: Reason(s) for PT Consult:: Evaluate and Treat Any Restrictions?:: See Comment Consult to Physician [CONS] Routine Comment: Consulting Provider: Hospitalists Has provider been notified: No Consult to [employer] Line Helper [CONS] Routine Comment: Reason for Consult:: Discharge Planning Needs 06/27/22 05:50 Consult to [employer] Line Helper [CONS] Routine Comment: Pt primary caregiver for , worried managing Reason for Consult:: Social Service Consult Discharge Planning Needs Attending Physician on discharge: Raúl Gallegos MD Date of Discharge: 06/27/22 DS: Diagnosis Discharge Diagnosis (1) Status post reverse arthroplasty of right shoulder: Status: Acute (2) Atrial fibrillation: Status: Chronic Problem details: Chronically on Eliquis for this (3) Hypokalemia: Status: Acute (4) Hypertension: Status: Chronic (5) Sleep apnea: Status: Chronic Problem details: uses a CPAP DS: Summary Hospital Course Hospital Course: This is an 81-year-old male who underwent elective right reverse shoulder arthroplasty for right rotator cuff arthropathy. Surgery and postoperative course were uneventful. He was able to do some exercises with physical therapy today. His daughter and were in the room with him during my interview and exam. His daughter notes that she will be staying with him for a few days and her cousin lives nearby and will be helping out as well. He has had flatus, but no BM yet since surgery. He did have a problem with constipation after a previous surgery. He started taking senna S about 3 days ago in anticipation of this. He denies any new chest pain or shortness of breath. He did feel a little winded after the exercises with physical therapy today, but he says this is nothing new and has been going on for 20 years or more. He and his family had no concerns prior to homegoing. He is on chronic diuretic therapy for hypertension and potassium replacement therapy to go along with this. His potassium was slightly low today for which I gave him some oral potassium replacement prior to discharge. He is instructed to continue his usual potassium supplementation as an outpatient. He is discharged home in stable condition. Status at Discharge Overall status at discharge: patient is progressing back to baseline Time Spent with Patient Time attestation: Total time spent providing and/or coordinating discharge services: Time spent: Less than 30 minutes Exam Narrative: Exam Narrative: General: No acute distress. Awake, alert, oriented x3. No pallor. No jaundice. Oropharynx: Clear. Mucous membranes moist. Cardiovascular: Regular rate and rhythm. No murmurs, gallops, or rubs. Respiratory: Clear to auscultation bilaterally. No wheezes or crackles. Right shoulder: bandage is C/D/I. Abdomen: Bowel sounds present. Soft, nondistended, nontender. Const: Vital Signs, click to edit/add: Vital Signs - 24 hr 06/26/22 12:35 06/26/22 12:28 06/26/22 12:13 Temperature 98.5 F Pulse Rate 52 L 54 L 52 L Pulse Rate [Left P ulse Oximeter] Respiratory Rate 16 16 Blood Pressure 133/68 135/70 140/75 H Blood Pressure [Le ft Arm] Pulse Oximetry 99 99 99 Oxygen Delivery Me thod Nasal Cannula Oxygen Flow Rate 2 06/26/22 12:15 06/26/22 12:20 06/26/22 12:25 Temperature Pulse Rate 54 L 51 L 57 L Pulse Rate [Left P ulse Oximeter] Respiratory Rate 16 16 16 Blood Pressure 144/70 H 138/70 135/70 Blood Pressure [Le ft Arm] Pulse Oximetry 98 99 99 Oxygen Delivery Me thod Nasal Cannula Nasal Cannula Nasal Cannula Oxygen Flow Rate 2 2 2 06/26/22 12:30 06/26/22 12:40 06/26/22 12:50 Temperature 96.8 F L Pulse Rate 52 L 55 L 58 L Pulse Rate [Left P ulse Oximeter] Respiratory Rate 16 16 14 Blood Pressure 136/66 138/65 Blood Pressure [Le ft Arm] 124/76 Pulse Oximetry 99 99 Oxygen Delivery Me thod Nasal Cannula Room Air Room Air Oxygen Flow Rate 2 2 06/26/22 12:50 06/26/22 13:15 06/26/22 14:30 Temperature 96.8 F L Pulse Rate Pulse Rate [Left P ulse Oximeter] 58 L 52 L 61 Respiratory Rate 14 16 Blood Pressure Blood Pressure [Le ft Arm] 124/76 129/67 113/66 Pulse Oximetry 94 93 Oxygen Delivery Me thod Room Air Room Air Room Air Oxygen Flow Rate 06/26/22 15:00 06/26/22 18:00 06/26/22 13:06 Temperature 97.8 F Pulse Rate Pulse Rate [Left P ulse Oximeter] 64 63 60 Respiratory Rate 16 14 14 Blood Pressure Blood Pressure [Le ft Arm] 116/64 114/58 L 127/73 Pulse Oximetry 94 93 92 Oxygen Delivery Me thod Room Air Room Air Room Air Oxygen Flow Rate 06/26/22 13:30 06/26/22 13:45 06/26/22 14:00 Temperature 97.8 F 98.1 F Pulse Rate Pulse Rate [Left P ulse Oximeter] 57 L 59 L 51 L Respiratory Rate 14 16 Blood Pressure Blood Pressure [Le ft Arm] 127/71 115/64 120/69 Pulse Oximetry 93 94 92 Oxygen Delivery Me thod Room Air Room Air Room Air Oxygen Flow Rate 06/26/22 17:00 06/26/22 23:00 06/26/22 23:00 Temperature 98 F Pulse Rate Pulse Rate [Left P ulse Oximeter] 68 70 70 Respiratory Rate 16 20 Blood Pressure Blood Pressure [Le ft Arm] 125/69 145/73 H Pulse Oximetry 93 95 Oxygen Delivery Me thod Room Air CPAP Oxygen Flow Rate 06/26/22 19:00 06/27/22 03:00 06/27/22 07:54 Temperature 98.5 F 98 F 98.1 F Pulse Rate Pulse Rate [Left P ulse Oximeter] 76 62 62 Respiratory Rate 18 22 18 Blood Pressure Blood Pressure [Le ft Arm] 107/61 146/70 H 169/74 H Pulse Oximetry 96 98 98 Oxygen Delivery Me thod Room Air CPAP CPAP Room Air Oxygen Flow Rate DS: Data Data Completed and Pending Labs on day of discharge: Labs from last 24 hours 06/27/22 06/27/22 06/26/22 06:00 06:00 16:31 WBC 14.84 H RBC 3.55 L Hgb 10.3 L Hct 32.2 L MCV 91 MCH 29 MCHC 32 Plt Count 226 Sodium 138 Potassium 3.5 L 3.7 BUN 38 H Creatinine 1.2 Estimated Creat Clear 47.50 Estimated GFR 61 Discharge Plan Discharge Disposition: Home, Self-Care Discharging Surgeon: Raúl Gallegos Follow-Up Appointment: One week with Orthopedics Prescriptions: New acetaminophen 500 mg Tablet 500 - 1,000 mg PO Q6H MDD 4000 mg per day PRNQty: 100 0RF oxycodone 5 mg Tablet 2.5 - 5 mg PO Q4-6H MDD 6 tabs per day PRN (Reason: Pain) Qty: 35 0RF Rx Instructions: Minimize. Discontinue soon as possible Continued allopurinol 100 mg tablet 200 mg PO DAILY calcium carbonate [Calcium 500] 500 mg calcium (1,250 mg) tablet,chewable 1,000 mg PO Q6H PRN Eliquis 5 mg tablet 5 mg PO BID Label Comments: TAKE ONE TABLET BY MOUTH TWICE A DAY metoprolol tartrate 25 mg tablet 25 mg PO BID triamterene-hydrochlorothiazid 75-50 mg tablet 1 tab PO DAILY Label Comments: TAKE ONE TABLET BY MOUTH EVERY MORNING potassium chloride 20 mEq tablet,ER particles/crystals 20 meq PO DAILY Label Comments: TAKE ONE TABLET BY MOUTH EVERY DAY WITH BREAKFAST magnesium oxide 250 mg magnesium tablet 250 mg PO DAILY multivitamin Tablet 1 tab PO DAILY fluticasone propionate 50 mcg/actuation spray,suspension 2 spray intranasal DAILY PRN Rx Instructions: administer into each nostril glucosamine-chondroitin 750-600 mg tablet PO Discontinued acetaminophen 500 mg tablet 1,000 mg PO Q6H PRN Activity Level: Weight Bearing as Tolerated Activity Detail: Patient will wear the sling for 6 weeks post surgery. He can take it off for comfort and for exercises. Activity: no external rotation of the right shoulder past 0? x 6 weeks. Forward flexion and abduction of the right shoulder is allowed as tolerated. They will work on range of motion of the elbow, wrist, fingers once the block has wore off on the operative extremity. Patient will begin physical therapy for the operative shoulder next week. For discharge, oxycodone and Tylenol for pain. Do not drive while on narcotic pain medication. Drive only when safe to do so, when they have normal use/function of the upper extremity, this will likely take 6 weeks. Patient will minimize and discontinue the narcotic as soon as possible. Remove dressing in 1 week. Dressing is waterproof. May shower. Surgical glue covers the wound. Do not scrub the wound. Expect swelling and bruising about the shoulder and upper extremity. Call Orthopedics if swelling is excessive. Use of ice/active ice is without restriction. Patient will notify Orthopedics with any questions or concerns. Return to Orthopedic clinic next week for a wound check Return to clinic in [address] Gallegos. Discharge Diet: Regular Forms: Work/Release Restrictions Follow-up: Jeanine Marino V, OSCAR [Primary Care Provider] - Sandra Gould PA-C [Physician Envelope Stamping Machine Operator] - 07/04/22 9:00 am (Schedule 6 week surgeon appointment at this time.) Discharge Orders: Discharge Order (Routine); Ordered 06/27/22 Ordered By: Sairka Wiggins
[2022-06-27] MEDS: POTASSIUM BICARB 25 MEQ EFFERVESCENT TAB PO (12:15)
--- NOTE | 2022-06-27 13:32 | PC.SOCIAL ---
Pt. did not move well with therapy and needs assistance with toileting, dressing, his sling and ADL's. Pt.'s daughter can only stay with pt. until Thursday. Pt. is interested in a SNF for short-term rehab. Pt. prefers placement in [place], [facility], and [facility] and [place]. Message left with [facility] and [facility]. [facility] has no openings. [facility] and [facility] have no beds until next week. [facility] has a bed but are not accepting any pt.'s on CPAP currently. [facility] has a respite apartment possibly available on Thursday for pt. in the [place] and a respite in memory care for his spouse with dementia. career placement services counselor will talk more with daughter and pt. on plan.
--- NOTE | 2022-06-27 14:22 | PC.NURSE ---
Pt. ambulating with cane, transfer belt and SBA. Right shoulder dressing dry and intact. Sling/immobilizer in place. CMS intact. Denies pain.
--- NOTE | 2022-06-27 15:00 | PC.SOCIAL ---
No facilities in [place] have availability. [facility] in [facility] have openings and are assessing.
[2022-06-27] MEDS: OXYCODONE 5 MG TABLET PO ×2 (15:36→23:52)
[2022-06-27 15:40] VITALS: BP 127/55; PULSE 88; RESP 18; TEMP 36.9; O2SAT 98
--- NOTE | 2022-06-27 16:09 | PC.SOCIAL ---
Pt. has been accepted to [facility] in [facility] for Thursday. Pt.'s daughter Laura @ [phone] will plan to be here at 10am to transport.
--- NOTE | 2022-06-27 22:45 | PC.NURSE ---
Shift [id number]- Patient states pain is tolerable throughout shift, but agreeable to taking PRN pain medication this afternoon. Arm remains in sling. Cryocuff applied. He is up with cane and SBA and is steady. He does have movement of fingers and somewhat of arm, hand is warm and pulses present. Appetite intact, he is voiding.
[2022-06-27 23:00] VITALS: BP 141/72; PULSE 55; RESP 15; TEMP 36.1; O2SAT 98
[2022-06-27] MEDS: LORazepam 0.5 MG TABLET PO (23:52)
[2022-06-28] VITALS: RESP 21
[2022-06-28] MEDS: OXYCODONE 5 MG TABLET PO ×3 (05:32→20:26)
--- NOTE | 2022-06-28 06:17 | PC.NURSE ---
Shift [id number] Pt this shift requested Ativan for sleep and oxycodone for pain (see eMAR). pt able to get about 3 hours uninterrupted sleep. Up to use the restroom x3, sufficient void and one lg soft BM. Pt walks independently with cane and SB assist. Scant amount of thick brown mucus in brief, pt aware and states it is from new bladder made from pt own intestine which will still create mucus. Sediment in urine noted as well. CPAP on NOC. CMS intact, pt alert and oriented x3.
[2022-06-28 07:31] LABS: Hematocrit 34.1 % (37.0-53.0); Hemoglobin* 10.9 gm/dL (13.5-17.5); Mean Corpuscular HGB Conc 32 gm/dL (32-36); Mean Corpuscular Hemoglobin 29 pg (26-34); Mean Corpuscular Volume 92 fL (80-100); Platelet Count* 175 K/uL (140-440); Red Blood Count 3.71 m/uL (4.30-5.90); White Blood Count* 12.02 K/uL (4.50-11.00)
[2022-06-28 07:47] LABS: Potassium* 3.5 mmol/L (3.6-5.1); Sodium* 140 mmol/L (135-149)
[2022-06-28 07:50] LABS: Creatinine* 1.1 mg/dL (0.5-1.5); Est. Creatinine Clearance* 51.82; Estimated Glomerular Filt Rate 68 ml/min
[2022-06-28 07:51] LABS: Blood Urea Nitrogen* 36 mg/dL (7-30)
[2022-06-28 09:11] LABS: Slide Review Reflex Yes
[2022-06-28 09:12] LABS: Slide Review Acceptable Review (Acceptable)
[2022-06-28] MEDS: SENNOSIDES 1 TAB TABLET 2 TAB PO ×2 (09:12→20:25)
[2022-06-28] MEDS: POTASSIUM CHLORIDE 10 MEQ CAPSULE ER 20 MEQ PO (09:12)
[2022-06-28] MEDS: allopurinoL 100 MG TABLET 200 MG PO (09:13)
[2022-06-28] MEDS: METOPROLOL TARTRATE 25 MG TABLET PO ×2 (09:13→20:27)
[2022-06-28] MEDS: MAGNESIUM OXIDE 400 MG TABLET 200 MG PO (09:15)
[2022-06-28 09:39] VITALS: BP 133/61; PULSE 54; RESP 16; TEMP 36.4; O2SAT 99
[2022-06-28] MEDS: ACETAMINOPHEN 500 MG TABLET 1000 MG PO ×3 (11:16→23:46)
--- NOTE | 2022-06-28 14:14 | PM.IMPN1 ---
Progress Note: A&P Assessment and plan (1) Status post reverse arthroplasty of right shoulder: Status: Acute Assessment and Plan: Uneventful post op course. Pain control adequate. Cares per ortho. Cont PT/OT. Awaiting d/c to [facility] on Thursday. VTE prophylaxis - aticoagulated with Eliquis. (2) Hypokalemia: Status: Acute Assessment and Plan: Continue home potassium supplementation. Give extra today. Recheck in am. (3) Sleep apnea: Problem details: uses a CPAP Status: Chronic (4) Anticoagulated: Problem details: Eliquis for afib Status: Acute Assessment and Plan: Restart today. (5) Atrial fibrillation: Problem details: Chronically on Eliquis for this Status: Chronic Assessment and Plan: Rate controlled. (6) Hypertension: Status: Chronic Assessment and Plan: BP good control on metoprolol. Home triamterene/HCTZ remains on hold. Subjective Time Seen by Provider: 09:30 Date Seen: 06/28/22 Interval history: Don tells me he is doing well. He overall feels a little bit better today, stronger. He denies chest pain or shortness of breath. Exam Narrative: Exam Narrative: General: No acute distress. Awake, alert, oriented. Cardiovascular: Irreg irreg. No murmurs, gallops, or rubs. Respiratory: Clear to auscultation bilaterally. No wheezes or crackles. Right shoulder: bandage is C/D/I. Abdomen: Bowel sounds present. Soft, nondistended, nontender. Const: Vital Signs, click to edit/add: Vital Signs - 24 hr 06/27/22 15:40 06/27/22 23:00 06/28/22 00:00 Temperature 98.5 F 97 F L Pulse Rate [Left P ulse Oximeter] 55 L Pulse Rate [Left R adial] 88 55 L Respiratory Rate 18 15 21 Blood Pressure [Le ft Arm] 127/55 L 141/72 H Pulse Oximetry 98 98 Oxygen Delivery Me thod Room Air Room Air 06/28/22 09:39 Temperature 97.6 F Pulse Rate [Left P ulse Oximeter] Pulse Rate [Left R adial] 54 L Respiratory Rate 16 Blood Pressure [Le ft Arm] 133/61 Pulse Oximetry 99 Oxygen Delivery Me thod Room Air Labs Labs: Laboratory Results - last 24 hr 06/28/22 06/28/22 06:15 06:15 WBC 12.02 H RBC 3.71 L Hgb 10.9 L Hct 34.1 L MCV 92 MCH 29 MCHC 32 Plt Count 175 Diff Slide Review Acceptable Review Sodium 140 Potassium 3.5 L BUN 36 H Creatinine 1.1 Estimated Creat Clear 51.82 Estimated GFR 68
[2022-06-28] MEDS: POTASSIUM BICARB 25 MEQ EFFERVESCENT TAB PO ×2 (15:14→16:40)
[2022-06-28 17:00] VITALS: BP 125/64; PULSE 65; RESP 16; TEMP 36.5; O2SAT 98
--- NOTE | 2022-06-28 17:30 | PC.NURSE ---
Shift Summary: patient pleasant and cooperative. Up with SBA and cane. Vitals stable and WNL. Pain controlled with continuous ice and PRN medication. Good appetite, tolerating regular diet well. Right arm in sling, patient requiring assistance with dressing and toileting.
[2022-06-28] MEDS: APIXABAN 5 MG TABLET PO (20:28)
[2022-06-29 01:00] VITALS: BP 139/72; PULSE 65; RESP 24; TEMP 36.1; O2SAT 96
[2022-06-29] MEDS: ACETAMINOPHEN 500 MG TABLET 1000 MG PO ×2 (05:22→17:02)
--- NOTE | 2022-06-29 06:02 | PC.NURSE ---
Shift [id number] Pt this shift in bed with CPAP on beginning of shift. CMS of R arm intact, slight edematous tissue surrounding dressing. No redness, dressing C,D,I, and pain controlled with oxycodone and Tylenol (see eMAR). Pt pleasant and cooperative, VSS, IV asymptomatic.
[2022-06-29 07:21] LABS: Potassium* 3.7 mmol/L (3.6-5.1)
[2022-06-29 07:37] VITALS: BP 152/87; PULSE 57; RESP 16; TEMP 36.6; O2SAT 99
[2022-06-29] MEDS: POTASSIUM CHLORIDE 10 MEQ CAPSULE ER 20 MEQ PO (09:18)
[2022-06-29] MEDS: MULTIVITAMIN/MINERALS 1 TABLET 1 TAB PO (09:19)
[2022-06-29] MEDS: MAGNESIUM OXIDE 400 MG TABLET 200 MG PO (09:19)
[2022-06-29] MEDS: SENNOSIDES 1 TAB TABLET 2 TAB PO ×2 (09:19→20:37)
[2022-06-29] MEDS: APIXABAN 5 MG TABLET PO ×2 (09:19→20:37)
[2022-06-29] MEDS: METOPROLOL TARTRATE 25 MG TABLET PO ×2 (09:19→20:36)
[2022-06-29] MEDS: allopurinoL 100 MG TABLET 200 MG PO (09:19)
[2022-06-29] MEDS: OXYCODONE 5 MG TABLET PO ×2 (11:10→21:05)
[2022-06-29 11:21] VITALS: BP 122/63; PULSE 70; RESP 16; TEMP 36.9; O2SAT 99
--- NOTE | 2022-06-29 14:12 | PM.IMPN1 ---
Progress Note: A&P Assessment and plan (1) Status post reverse arthroplasty of right shoulder: Status: Acute Assessment and Plan: Uneventful post op course. Pain control adequate. Cares per ortho. Cont PT/OT. Awaiting d/c to [facility] on Thursday. VTE prophylaxis - aticoagulated with Eliquis. (2) Hypokalemia: Status: Acute Assessment and Plan: Resolved with extra oral supplementation over the last few days. Continue home potassium supplementation. (3) Sleep apnea: Problem details: uses a CPAP Status: Chronic (4) Anticoagulated: Problem details: Eliquis for afib Status: Acute Assessment and Plan: Restart today. (5) Atrial fibrillation: Problem details: Chronically on Eliquis for this Status: Chronic Assessment and Plan: Rate controlled. (6) Hypertension: Status: Chronic Assessment and Plan: BP good control on just metoprolol. Home triamterene/HCTZ remains on hold. Subjective Time Seen by Provider: 09:58 Date Seen: 06/29/22 Interval history: Feels well. No complaints. Denies chest pain or shortness of breath. Exam Narrative: Exam Narrative: General: No acute distress. Awake, alert, oriented. Cardiovascular: Irreg irreg. No murmurs, gallops, or rubs. Respiratory: Clear to auscultation bilaterally. No wheezes or crackles. Right shoulder: bandage is C/D/I. Abdomen: Bowel sounds present. Soft, nondistended, nontender. Const: Vital Signs, click to edit/add: Vital Signs - 24 hr 06/28/22 17:00 06/29/22 01:00 06/29/22 07:37 Temperature 97.7 F 96.9 F L 97.9 F Pulse Rate [Left P ulse Oximeter] 65 Pulse Rate [Left R adial] 65 65 57 L Respiratory Rate 16 24 16 Blood Pressure [Le ft Arm] 125/64 139/72 152/87 H Pulse Oximetry 98 96 99 Oxygen Delivery Me thod Room Air Room Air CPAP Room Air 06/29/22 11:21 Temperature 98.4 F Pulse Rate [Left P ulse Oximeter] Pulse Rate [Left R adial] 70 Respiratory Rate 16 Blood Pressure [Le ft Arm] 122/63 Pulse Oximetry 99 Oxygen Delivery Me thod Room Air Labs Labs: Laboratory Results - last 24 hr 06/29/22 06:21 Potassium 3.7
--- NOTE | 2022-06-29 17:41 | PC.NURSE ---
Shift Summary: Patient pleasant and cooperative. Up with SBA and cane. Tolerating regular diet. Pain controlled with PRN medication and continuous ice. Vitals stable and WNL. Dressing over right shoulder dry and intact.
[2022-06-29 19:00] VITALS: BP 143/65; PULSE 72; RESP 18; TEMP 36.1; O2SAT 98
[2022-06-29] MEDS: SODIUM CHLORIDE 0.9 % (FLUSH) 10 ML SYRINGE 5 ML IVF (20:37)
[2022-06-30] MEDS: ACETAMINOPHEN 500 MG TABLET 1000 MG PO (01:38)
[2022-06-30 03:00] VITALS: BP 143/68; PULSE 56; RESP 12; TEMP 35.5; O2SAT 96
--- NOTE | 2022-06-30 05:24 | PC.NURSE ---
Shift [id number] Pt this shift completed exercises and oral cares with JANNY at HS. Pain controlled with oxycodone and Tylenol, see eMAR. Ambulate to bathroom with cane and SB assist. Observed using the IS independently for 3 breaths. U/o sufficient and clear light yellow with small amount of sediment, normal for pt. Pt pleasant and cooperative.
[2022-06-30 07:00] VITALS: PULSE 54; RESP 12
[2022-06-30 08:26] VITALS: BP 141/76; PULSE 54; RESP 12; TEMP 35.6; O2SAT 100
[2022-06-30] MEDS: OXYCODONE 5 MG TABLET PO (09:30)
[2022-06-30] MEDS: allopurinoL 100 MG TABLET 200 MG PO (09:30)
[2022-06-30] MEDS: POTASSIUM CHLORIDE 10 MEQ CAPSULE ER 20 MEQ PO (09:31)
[2022-06-30] MEDS: METOPROLOL TARTRATE 25 MG TABLET PO (09:31)
[2022-06-30] MEDS: MAGNESIUM OXIDE 400 MG TABLET 200 MG PO (09:31)
[2022-06-30] MEDS: APIXABAN 5 MG TABLET PO (09:32)
[2022-06-30] MEDS: SODIUM CHLORIDE 0.9 % (FLUSH) 10 ML SYRINGE 5 ML IVF (09:32)
[2022-06-30] MEDS: SENNOSIDES 1 TAB TABLET 2 TAB PO (09:32)
[2022-06-30] MEDS: MULTIVITAMIN/MINERALS 1 TABLET 1 TAB PO (09:32)
--- NOTE | 2022-06-30 09:35 | PM.IMPN1 ---
Progress Note: A&P Assessment and plan (1) Status post reverse arthroplasty of right shoulder: Status: Acute Assessment and Plan: Postop course remains uneventful. Pain control adequate. Cares per ortho. Discharged to [facility] today for OT. VTE prophylaxis - aticoagulated with Eliquis. (2) Sleep apnea: Problem details: uses a CPAP Status: Chronic (3) Anticoagulated: Problem details: Eliquis for afib Status: Acute Assessment and Plan: Restart today. (4) Atrial fibrillation: Problem details: Chronically on Eliquis for this Status: Chronic Assessment and Plan: Rate controlled. (5) Hypertension: Status: Chronic Assessment and Plan: Becoming hypertensive now. Continue home metoprolol. Restart home triamterene hydrochlorothiazide upon discharge to [facility]. Subjective Time Seen by Provider: :13 Date Seen: 06/30/22 Interval history: Elton is doing well. He has no complaints. Exam Narrative: Exam Narrative: General: No acute distress. Awake, alert, oriented. Cardiovascular: Irreg irreg. No murmurs, gallops, or rubs. Respiratory: Clear to auscultation bilaterally. No wheezes or crackles. Right shoulder: bandage is C/D/I. Const: Vital Signs, click to edit/add: Vital Signs - 24 hr 06/29/22 11:21 06/29/22 19:00 06/30/22 03:00 Temperature 98.4 F 97 F L 96 F L Pulse Rate [Left P ulse Oximeter] 72 56 L Pulse Rate [Left R adial] 70 Respiratory Rate 16 18 12 Blood Pressure [Le ft Arm] 122/63 143/65 H 143/68 H Pulse Oximetry 99 98 96 Oxygen Delivery Me thod Room Air Room Air Room Air CPAP 06/30/22 07:00 06/30/22 08:26 Temperature 96.1 F L Pulse Rate [Left P ulse Oximeter] 54 L 54 L Pulse Rate [Left R adial] Respiratory Rate 12 12 Blood Pressure [Le ft Arm] 141/76 H Pulse Oximetry 100 Oxygen Delivery Me thod CPAP
--- NOTE | 2022-06-30 10:44 | PC.NURSE ---
d/c info reviewed with patient. Oxy 5mg given prior to d/c. Nurse to nurse report called and VML at 0940. Pt Discharged to [facility] at 1000, dtr to transport.
== END 2022-06-30 10:20 | DRG 483 ==
LOC: OR 16:09 → MEDSURG 06-29 14:19
PROVIDERS: Internal Medicine; Admitting Provider Internal Medicine; PCP Nurse Practitioner Family; Visit Provider Orthopaedic Surgery
PROC: 0RRJ0JZ Replacement of Right Shoulder Joint with Synthetic Substitute, Open Approach (ICD-10-PCS; CPT 23472; principal; 2022-06-26 10:00)
DX: M75.101 Unspecified rotator cuff tear or rupture of right shoulder, not specified as traumatic (principal); E87.6 Hypokalemia; I48.0 Paroxysmal atrial fibrillation; Z79.01 Long term (current) use of anticoagulants; I10 Essential (primary) hypertension; G47.33 Obstructive sleep apnea (adult) (pediatric); I25.10 Atherosclerotic heart disease of native coronary artery without angina pectoris; K21.9 Gastro-esophageal reflux disease without esophagitis; Z85.51 Personal history of malignant neoplasm of bladder; M10.9 Gout, unspecified
CPT/HCPCS: 01638; 36415; 64415; 76942; 82565; 84132; 84295; 84520; 85027; 97110; 97116; 97161; 97165; 97535; 99100; A9153; A9270; C1713; C1776; J0330; J0690; J1100; J2250; J2704; J2710; J2795; J3010; J7120